=== PATIENT | male | born 1980 | race American Indian/Alaskan Native ===

== ENCOUNTER 2017-09-01 07:57 | Emergency (ER) | payer MEDICAID ==
[2017-09-01 08:10] VITALS: BP 104/68; PULSE 65; RESP 18; TEMP 97; O2SAT 99
[2017-09-01] MEDS ORDERED: Oxycodone/Acetaminophen 5/325 mg Tab PO STA (08:45)
[2017-09-01] MEDS ORDERED: Oxycodone/Acetaminophen 5/325 mg Tab ONE (09:06)
--- NOTE | 2017-09-01 09:10 | ED PDOC ---
HPI: Trauma/Fall - HPI Time Seen by Provider: 09/01/17 08:04 Chief Complaint (Nursing): Trauma Chief Complaint (Provider): Left arm and lower back pain History Per: Patient History/Exam Limitations: no limitations Injury Occurred (Timing): Today @ (0200) Additional Complaint(s): Matthew Cummings is a 36 year old male with no past medical history who presents to the ED complaining of left arm and lower back pain after sustaining a fall. Patient states he fell off his skateboard @2am. Patient denies head injury or loss of consciousness. Tetanus not UTD. PMD: Colin Pugh Past Medical History Reviewed: Historical Data, Nursing Documentation, Vital Signs Vital Signs: Last Vital Signs Temp 97 F L 09/01/17 08:07 Pulse 65 09/01/17 08:07 Resp 18 09/01/17 08:07 BP 104/68 09/01/17 08:07 Pulse Ox 99 09/01/17 08:07 - Family History Family History: States: Unknown Family Hx - Social History Current smoker - smoking cessation education provided: Yes (>10 cigarettes per day) Alcohol: Social Drugs: Cannabis (Daily) - Immunization History Hx Tetanus Toxoid Vaccination: No Hx Influenza Vaccination: No Hx Pneumococcal Vaccination: No - Home Medications Home Medications: Ambulatory Orders Medication Instructions Recorded Cyclobenzaprine [Cyclobenzaprine 10 mg PO TID PRN #15 tab 09/01/17 HCl] Naproxen [Naprosyn] 500 mg PO BID PRN #15 tablet 09/01/17 - Allergies Allergies/Adverse Reactions: Allergies Allergy/AdvReac Type Severity Reaction Status Date / Time No Known Allergies Allergy Verified 09/01/17 08:07 Review of Systems ROS Statement: Except As Marked, All Systems Reviewed And Found Negative Musculoskeletal: Positive for: Arm Pain (left), Back Pain (lower) Neurological: Negative for: Other (loss of consciousness, head injury) Physical Exam - Reviewed Nursing Documentation Reviewed: Yes Vital Signs Reviewed: Yes - Physical Exam Appears: Positive for: In Acute Distress (Mild painful) Head Exam: Positive for: ATRAUMATIC, NORMAL INSPECTION, NORMOCEPHALIC Skin: Positive for: Normal Color, Warm, Dry Eye Exam: Positive for: EOMI, Normal appearance, PERRL Neck: Positive for: Normal, Painless ROM, Supple Cardiovascular/Chest: Positive for: Regular Rate, Rhythm. Negative for: Murmur Respiratory: Positive for: Normal Breath Sounds. Negative for: Respiratory Distress Pulses-Radial (L): 2+ Pulses-Radial (R): 2+ Gastrointestinal/Abdominal: Positive for: Normal Exam, Bowel Sounds, Soft. Negative for: Tenderness Back: Positive for: Normal Inspection, Other (Tenderness to left paralumbar area ) Extremity: Positive for: Tenderness (superior elbow to hand, decreased ROM secondary to pain), Other (Sensation intact, superficial abrasions to posterior arm distal to elbow ). Negative for: Deformity (None obvious) Neurologic/Psych: Positive for: Alert, Oriented - ECG O2 Sat by Pulse Oximetry: 99 (RA) Pulse Ox Interpretation: Normal Medical Decision Making Medical Decision Making: Time: 08:43 Initial Impression: Fall, rule out fractures Plan: --Lumbar Spine Complete --Tetanus/Reduced Adacel 0.5 ml IM --Percocet [5/325 mg] PO --X-Ray Elbow left 3 views routine --Forearm LT fall protocol --Hand left 3 views routine --Humerus LT fall protocol --LS Spine AP/Lat --Shoulder left --Wrist, left 3 views --Reevaluation X-RAY RESULTS: Time: 9:43 X-Ray LS Spine: FINDINGS: BONES: There is normal alignment of the lumbar vertebral bodies. Lumbar lordosis is maintained. Vertebral bodies are normal in height. Bone alignment is normal. There is no acute fracture, spondylolysis or spondylolisthesis. DISC SPACES: There is mild degenerative disc disease at L5-S1 with reduced disc height. The remaining disc heights are maintained. OTHER FINDINGS: There are no pathologic soft tissue calcifications. Both sacroiliac joints are normal. IMPRESSION: No acute fracture, spondylolysis or spondylolisthesis. Time: 10:42 X-Ray Left Hip: FINDINGS: BONES: The pelvic ring is intact. Bone alignment and mineralization are normal. There is no acute fracture or bone destruction. JOINTS: Normal. SOFT TISSUES: Normal. OTHER FINDINGS: None. IMPRESSION: No acute fracture or dislocation. Time: 10:44 X-Ray Right Shoulder: FINDINGS: BONES: Bone alignment and mineralization are normal. There is no acute displaced fracture or bone destruction. JOINTS: Normal. Glenohumeral and acromioclavicular joints preserved. No osteoarthritis. SOFT TISSUES: Normal. OTHER FINDINGS: None. IMPRESSION: No acute fracture or dislocation. Time: 10:45 X-Ray Left Humerus: FINDINGS: BONES: Bone alignment and mineralization are normal. There is no acute displaced fracture or bone destruction. SOFT TISSUES: Normal. OTHER FINDINGS: None. IMPRESSION: No acute fracture or dislocation. Time: 10:46 X-Ray Left Forearm: FINDINGS: BONES: Bone alignment and mineralization are normal. There is no acute displaced fracture or bone destruction. JOINT SPACES: Unremarkable. OTHER FINDINGS: None. IMPRESSION: No acute fracture or dislocation. Time: 10:47 X-Ray Left Elbow: FINDINGS: BONES: Bone alignment and mineralization are normal. No acute fracture. JOINTS: Normal. SOFT TISSUES: Normal. JOINT EFFUSION: None. OTHER FINDINGS: None IMPRESSION: No acute fracture or dislocation. Time: 10:48 X-Ray Left Wrist: FINDINGS: BONES: Bone alignment and mineralization are normal. No acute fracture. JOINTS: The joint spaces are preserved. No dislocation. SOFT TISSUES: Normal. OTHER FINDINGS: None. IMPRESSION: No acute fracture or dislocation. Time: 10:51 X-Ray Left Hand: FINDINGS: BONES: Bone alignment and mineralization are normal. No acute fracture. JOINTS: Normal. SOFT TISSUES: Normal. OTHER FINDINGS: None. IMPRESSION: No acute fracture or dislocation. X-Ray findings reviewed with patient, all questions answered. Patient is medically stable for discharge. Given Rx for naproxen and cyclobenzaprine. There is agreement to discharge plan. Return if symptoms persist or worsen. Scribe Attestation: Documented by Drew Muhammad acting as a scribe for Ann Bernard MD. MD Dowling Attestation: All medical record entries made by the Scribe were at my direction and personally dictated by me. I have reviewed the chart and agree that the record accurately reflects my personal performance of the history, physical exam, medical decision making, and the department course for this patient. I have also personally directed, reviewed, and agree with the discharge instructions and disposition. Disposition - Clinical Impression Clinical Impression: Back contusion, Contusion of left arm - Patient ED Disposition Is Patient to be Admitted: No Counseled Patient/Family Regarding: Studies Performed, Diagnosis, Need For Followup, Rx Given - Disposition Referrals: [facility] [Outside] Disposition: Routine/Home Disposition Time: 11:30 Condition: STABLE Prescriptions: Cyclobenzaprine [Cyclobenzaprine HCl] 10 mg PO TID PRN #15 tab PRN Reason: Pain Naproxen [Naprosyn] 500 mg PO BID PRN #15 tablet PRN Reason: Pain, Moderate (4-7) Instructions: Contusion in Adults (ED), Musculoskeletal Pain (ED) Forms: [employer] [facility] (Tongan)
--- NOTE | 2017-09-01 09:43 | RAD ---
PROCEDURE: Radiographs of the Lumbar Spine. HISTORY: Fall COMPARISON: No prior. FINDINGS: BONES: There is normal alignment of the lumbar vertebral bodies. Lumbar lordosis is maintained. Vertebral bodies are normal in height. Bone alignment is normal. There is no acute fracture, spondylolysis or spondylolisthesis. DISC SPACES: There is mild degenerative disc disease at L5-S1 with reduced disc height. The remaining disc heights are maintained. OTHER FINDINGS: There are no pathologic soft tissue calcifications. Both sacroiliac joints are normal. IMPRESSION: No acute fracture, spondylolysis or spondylolisthesis.
--- NOTE | 2017-09-01 10:44 | RAD ---
PROCEDURE: Left Hip X-ray Radiographs. HISTORY: Fall COMPARISON: None. FINDINGS: BONES: The pelvic ring is intact. Bone alignment and mineralization are normal. There is no acute fracture or bone destruction. JOINTS: Normal. SOFT TISSUES: Normal. OTHER FINDINGS: None. IMPRESSION: No acute fracture or dislocation.
--- NOTE | 2017-09-01 10:46 | RAD ---
PROCEDURE: Radiographs of the Left Shoulder HISTORY: Fall COMPARISON: No prior. FINDINGS: BONES: Bone alignment and mineralization are normal. There is no acute displaced fracture or bone destruction. JOINTS: Normal. Glenohumeral and acromioclavicular joints preserved. No osteoarthritis. SOFT TISSUES: Normal. OTHER FINDINGS: None. IMPRESSION: No acute fracture or dislocation.
--- NOTE | 2017-09-01 10:47 | RAD ---
PROCEDURE: Radiographs of the left humerus. HISTORY: Fall COMPARISON: None. FINDINGS: BONES: Bone alignment and mineralization are normal. There is no acute displaced fracture or bone destruction. SOFT TISSUES: Normal. OTHER FINDINGS: None. IMPRESSION: No acute fracture or dislocation.
--- NOTE | 2017-09-01 10:48 | RAD ---
PROCEDURE: Radiographs of the Left Forearm HISTORY: Fall COMPARISON: None available. TECHNIQUE: Frontal and lateral views obtained. FINDINGS: BONES: Bone alignment and mineralization are normal. There is no acute displaced fracture or bone destruction. JOINT SPACES: Unremarkable. OTHER FINDINGS: None. IMPRESSION: No acute fracture or dislocation.
--- NOTE | 2017-09-01 10:49 | RAD ---
PROCEDURE: Radiographs of the left elbow. HISTORY: Fall COMPARISON: No prior. FINDINGS: BONES: Bone alignment and mineralization are normal. No acute fracture. JOINTS: Normal. SOFT TISSUES: Normal. JOINT EFFUSION: None. OTHER FINDINGS: None IMPRESSION: No acute fracture or dislocation.
--- NOTE | 2017-09-01 10:50 | RAD ---
PROCEDURE: Left Wrist Radiographs. HISTORY: Fall COMPARISON: None. FINDINGS: BONES: Bone alignment and mineralization are normal. No acute fracture. JOINTS: The joint spaces are preserved. No dislocation. SOFT TISSUES: Normal. OTHER FINDINGS: None. IMPRESSION: No acute fracture or dislocation.
--- NOTE | 2017-09-01 10:53 | RAD ---
PROCEDURE: Left Hand Radiographs. HISTORY: Fall COMPARISON: None. FINDINGS: BONES: Bone alignment and mineralization are normal. No acute fracture. JOINTS: Normal. SOFT TISSUES: Normal. OTHER FINDINGS: None. IMPRESSION: No acute fracture or dislocation.
== END 2017-09-01 12:28 | disposition home or self-care (01) ==
LOC: H.ER 07:57
DX: S30.0XXA Contusion of lower back and pelvis, initial encounter (principal); S50.12XA Contusion of left forearm, initial encounter; W19.XXXA Unspecified fall, initial encounter; Y92.89 Other specified places as the place of occurrence of the external cause